=== PATIENT | female | born 1990 | race African-American/Black ===

== ENCOUNTER 2021-06-05 09:45 | Inpatient (IN) | payer MEDICAID, OTHER ==
[~2021-06-05] VITALS: Ht 157.5 cm; Wt 58.8 kg
[2021-06-05] MEDS ORDERED: TOPUD PO (09:58)
[2021-06-05] MEDS ORDERED: GABA-532 PO (09:58)
[2021-06-05] MEDS ORDERED: PRED-276 PO (09:58)
[2021-06-05 10:46] LABS: BASOPHILS % 0.1 % (0.0-2.0); EOSINOPHILS % 0.3 % (0.0-5.0); HEMATOCRIT. 37.3 % (36.0-48.0); HEMOGLOBIN. 12.3 g/dL (12.0-16.0); LYMPHOCYTES % 13.2 % (20.0-50.0); MEAN CORPUSCULAR HEMOGLOBIN 23.6 pg (28.0-32.0); MEAN CORPUSCULAR VOLUME 71.6 fL (81.0-99.0); MEAN PLATELET VOLUME 8.3 fl (7.4-10.4); MONOCYTES % 4.7 % (2.0-8.0); NEUTROPHILS % 81.7 % (40.0-76.0); PLATELET 224 x1000/uL (130-400); RED CELL DISTRIBUTION WIDTH 13.9 % (11.6-14.6)
[2021-06-05 10:53] LABS: CHLORIDE 107 mEq/L (98-107); PROTHROMBIN TIME 10.9 sec (9.6-11.0)
[2021-06-05 12:24] LABS: PLATELET ESTIMATE NORMAL
[2021-06-05] MEDS ORDERED: IPRATROPIUM/ALBUTEROL 0.5-3(2.5)MG/3ML NEB HHN PRN (12:45)
[2021-06-05] MEDS ORDERED: KCL 20MEQ/100ML PREMIX 100 ML IV NR (13:15)
[2021-06-05] MEDS: GABAPENTIN 300MG CAPSULE PO SCH (19:28)
[2021-06-06] VITALS (70 sets, daily range): BP systolic 71–150; BP diastolic 10–92
[2021-06-06] MEDS: DEXAMETHASONE 4MG/ML 1ML VIAL IV SCH ×4 (00:20→17:42)
[2021-06-06] MEDS ORDERED: MORPHINE SULFATE 2 MG/ML CPJ (NOT FOR IM USE) IV PRN (01:15)
[2021-06-06 07:08] LABS: CLARITY URINE CLOUDY (CLEAR); COLOR URINE YELLOW (YELLOW); KETONES URINE TRACE (NEGATIVE); LEUKOCYTE ESTERASE URINE NEGATIVE (NEGATIVE); NITRITE URINE NEGATIVE (NEGATIVE); OCCULT BLOOD URINE NEGATIVE (NEGATIVE); PH URINE 7.5 (4.5-8.0); PROTEIN URINE NEGATIVE (NEGATIVE); SPECIFIC GRAVITY URINE 1.016 (1.005-1.030); UROBILINOGEN URINE 0.2 E.U./dL (0.2-1.0)
[2021-06-06 07:12] LABS: UCG SCREEN NEGATIVE
[2021-06-06] MEDS ORDERED: HYDROMORPHONE HCL/PF 2MG/ML (OR) ONE (07:41)
[2021-06-06] MEDS ORDERED: ROCURONIUM BROMIDE 10MG/ML VIAL 5ML IV ONE (07:41)
[2021-06-06] MEDS ORDERED: DEXAMETHASONE 4MG/ML 1ML VIAL ONE (07:41)
[2021-06-06] MEDS ORDERED: MORPHINE SULFATE 4 MG/ML CPJ (NOT FOR IM USE) IV PRN (07:45)
[2021-06-06 07:46] LABS: BASOPHILS % 0.1 % (0.0-2.0); HEMATOCRIT. 39.2 % (36.0-48.0); HEMOGLOBIN. 12.5 g/dL (12.0-16.0); LYMPHOCYTES % 12.7 % (20.0-50.0); MEAN PLATELET VOLUME 8.6 fl (7.4-10.4); MONOCYTES % 2.5 % (2.0-8.0); NEUTROPHILS % 84.7 % (40.0-76.0); PLATELET 218 x1000/uL (130-400); RED BLOOD CELL COUNT 5.45 mill/uL (4.2-5.4)
[2021-06-06 07:48] LABS: CHLORIDE 106 mEq/L (98-107)
[2021-06-06] MEDS ORDERED: LABETALOL HCL 5MG/ML VIAL 20ML IV ONE (08:09)
[2021-06-06] MEDS ORDERED: HYDRALAZINE 20MG/ML VIAL ONE (08:09)
[2021-06-06] MEDS ORDERED: ALBUMIN HUMAN 25GM/100ML (25%) IV ONE (08:17)
[2021-06-06] MEDS ORDERED: PREDNISONE 10MG TABLET PO SCH (09:00)
[2021-06-06] MEDS: GABAPENTIN 300MG CAPSULE PO SCH ×3 (09:00→17:42)
[2021-06-06] MEDS ORDERED: NEOSTIGMINE METHYLSULFATE 1MG/ML 10 ML VIAL ONE (09:30)
[2021-06-06] MEDS ORDERED: GLYCOPYRROLATE 0.2 MG/ML 2ML VIAL ONE (09:30)
[2021-06-06] MEDS: DEXT 5%/LACTATED RINGERS 1,000 ML IV SCH ×2 (09:59→17:40)
[2021-06-06] MEDS ORDERED: ONDANSETRON INJ IV PRN (10:30)
[2021-06-06] MEDS ORDERED: DIPHENHYDRAMINE INJ IV PRN (10:30)
[2021-06-06] MEDS ORDERED: NALOXONE INJ IV PRN (10:30)
[2021-06-06] MEDS ORDERED: THROMBIN (BOVINE) 5000 UNITS/VIAL TOP ONE (10:53)
[2021-06-06] MEDS ORDERED: LIDOCAINE HCL/EPINEPHRINE 1%-EPI 1:100,000 30 ML VIAL INFIL ONE (10:53)
[2021-06-06] MEDS ORDERED: GENTAMICIN SULF 40MG/ML 2ML VIAL ONE (10:53)
[2021-06-06] MEDS ORDERED: HYDROMORPHONE PCA 10MG/50ML IV PRN (11:00)
[2021-06-06] MEDS: MORPHINE SULFATE 2 MG/ML CPJ (NOT FOR IM USE) IV PRN ×2 (11:26→13:38)
[2021-06-06] MEDS: NICARDIPINE 100 MG in SODIUM CHLORIDE 0.9% 60 ML IV PRN ×2 (12:21→18:24)
[2021-06-06] MEDS ORDERED: CEFAZOLIN SODIUM 1000MG/VIAL IV SCH (14:00)
[2021-06-06] MEDS: CEFAZOLIN 1000MG PREMIX 50 ML IV SCH ×2 (14:35→21:47)
[2021-06-06] MEDS ORDERED: MORPHINE SULFATE 2 MG/ML CPJ (NOT FOR IM USE) IV SCH ×2 (14:45)
[2021-06-06] MEDS: HYDROMORPHONE HCL/PF 2MG/ML CPJ IV PRN ×2 (17:40→21:47)
[2021-06-07] VITALS (91 sets, daily range): BP systolic 98–166; BP diastolic 39–100
[2021-06-07] MEDS: DEXAMETHASONE 4MG/ML 1ML VIAL IV SCH ×4 (00:49→17:14)
[2021-06-07] MEDS: DEXT 5%/LACTATED RINGERS 1,000 ML IV SCH ×2 (00:49→13:01)
[2021-06-07] MEDS: NICARDIPINE 100 MG in SODIUM CHLORIDE 0.9% 60 ML IV PRN ×2 (02:23→11:32)
[2021-06-07] MEDS: HYDROMORPHONE HCL/PF 2MG/ML CPJ IV PRN ×5 (04:34→21:14)
[2021-06-07] MEDS: CEFAZOLIN 1000MG PREMIX 50 ML IV SCH ×2 (06:30→12:59)
[2021-06-07] MEDS: GABAPENTIN 300MG CAPSULE PO SCH ×3 (08:06→17:14)
[2021-06-07 11:35] LABS: BG BASE EXCESS -1.4 mmol/L (-2.0-2.0); BG CARBOXYHEMOGLOBIN 0.3 % (0.5-1.5); BG DEOXYHEMOGLOBIN 1.4 % (0.0-5.0); BG FRACTION INSPIRED OXYGEN 21; BG HCO3 ACT 20.8 mmol/L (22.0-26.0); BG METHEMOGLOBIN 0.2 % (0.0-1.5); BG OXYGEN SATURATION 98.6 % (92.0-98.5); BG OXYHEMOGLOBIN 98.1 % (94.0-97.0); BG PCO2 27.1 mmHg (35.0-45.0); BG PH 7.502 (7.350-7.450); BG PO2 128.3 mmHg (75.0-100.0); BG SAMPLE SITE RIGHT RADIAL; BG TOTAL HEMOGLOBIN 10.8 g/dL (12.0-18.0); BG TOTAL RESPIRATORY RATE 18 b/min; BG VENT MODE ROOM AIR
[2021-06-07] MEDS: OXYCODONE HCL/ACETAMINOPHEN 5/325MG TABLET PO PRN ×2 (12:59→19:36)
[2021-06-07] MEDS ORDERED: BISACODYL 5MG TABLET PO PRN (18:45)
[2021-06-07] MEDS ORDERED: NALOXONE HCL 0.4MG/ML VIAL IV PRN (18:45)
[2021-06-08] VITALS (81 sets, daily range): BP systolic 100–157; BP diastolic 47–100
[2021-06-08] MEDS: DEXT 5%/LACTATED RINGERS 1,000 ML IV SCH ×3 (00:07→20:17)
[2021-06-08] MEDS: OXYCODONE HCL/ACETAMINOPHEN 5/325MG TABLET PO PRN ×5 (01:50→17:58)
[2021-06-08] MEDS: NICARDIPINE 100 MG in SODIUM CHLORIDE 0.9% 60 ML IV PRN ×2 (02:09→10:16)
[2021-06-08] MEDS: HYDROMORPHONE HCL/PF 2MG/ML CPJ IV PRN ×2 (07:18→12:43)
[2021-06-08] MEDS: DOCUSATE SODIUM 100MG CAPSULE PO SCH ×2 (08:07→17:57)
[2021-06-08] MEDS: GABAPENTIN 300MG CAPSULE PO SCH ×3 (08:07→17:57)
[2021-06-08] MEDS: PANTOPRAZOLE SODIUM 40 MG/VIAL IV SCH (08:07)
[2021-06-08] MEDS ORDERED: METOPROLOL TARTRATE 25MG TABLET PO NR (12:15)
[2021-06-08] MEDS: METOPROLOL TARTRATE 25MG TABLET PO SCH (20:17)
[2021-06-08 20:53] LABS: HEMATOCRIT. 29.9 % (36.0-48.0); HEMOGLOBIN. 9.7 g/dL (12.0-16.0); MEAN CORPUSCULAR HEMOGLOBIN 23.2 pg (28.0-32.0); MEAN CORPUSCULAR VOLUME 71.8 fL (81.0-99.0); MEAN PLATELET VOLUME 8.3 fl (7.4-10.4); PLATELET 219 x1000/uL (130-400); RED BLOOD CELL COUNT 4.16 mill/uL (4.2-5.4); RED CELL DISTRIBUTION WIDTH 13.5 % (11.6-14.6)
[2021-06-08] MEDS: GUAIFENESIN-DM 200MG-20MG/10ML UDC PO PRN (20:58)
[2021-06-08] MEDS ORDERED: PROMETHAZINE/DEXTROMETHORPHAN 6.25-15MG/5ML BOTTLE 120ML PO PRN (21:00)
[2021-06-08 21:03] LABS: CHLORIDE 101 mEq/L (98-107)
[2021-06-08 23:08] LABS: PLATELET ESTIMATE NORMAL
[2021-06-09] VITALS (42 sets, daily range): BP systolic 107–164; BP diastolic 72–103
[2021-06-09] MEDS: GUAIFENESIN-DM 200MG-20MG/10ML UDC PO PRN ×3 (00:47→08:00)
[2021-06-09] MEDS: OXYCODONE HCL/ACETAMINOPHEN 5/325MG TABLET PO PRN ×3 (00:47→18:32)
[2021-06-09] MEDS: DEXT 5%/LACTATED RINGERS 1,000 ML IV SCH ×2 (05:03→16:25)
[2021-06-09] MEDS: PANTOPRAZOLE SODIUM 40 MG/VIAL IV SCH (08:00)
[2021-06-09] MEDS: GABAPENTIN 300MG CAPSULE PO SCH ×3 (08:01→16:25)
[2021-06-09] MEDS: DOCUSATE SODIUM 100MG CAPSULE PO SCH ×2 (08:01→16:25)
[2021-06-09] MEDS: METOPROLOL TARTRATE 25MG TABLET PO SCH ×2 (08:01→20:21)
[2021-06-09] MEDS: PIPERACILLIN/TAZOBACTAM 3.375 G in DEXTROSE 5% WATER 50 ML IV SCH ×2 (13:07→23:30)
[2021-06-09] MEDS: IPRATROPIUM/ALBUTEROL 0.5-3(2.5)MG/3ML NEB HHN SCH (20:27)
[2021-06-10] VITALS (22 sets, daily range): BP systolic 111–152; BP diastolic 34–134
[2021-06-10] MEDS: IPRATROPIUM/ALBUTEROL 0.5-3(2.5)MG/3ML NEB HHN SCH ×4 (02:37→20:49)
[2021-06-10] MEDS: OXYCODONE HCL/ACETAMINOPHEN 5/325MG TABLET PO PRN ×2 (04:14→16:10)
[2021-06-10 05:27] LABS: BASOPHILS % 0.1 % (0.0-2.0); EOSINOPHILS % 0.1 % (0.0-5.0); HEMATOCRIT. 29.5 % (36.0-48.0); HEMOGLOBIN. 9.5 g/dL (12.0-16.0); LYMPHOCYTES % 11.6 % (20.0-50.0); MEAN CORPUSCULAR VOLUME 71.5 fL (81.0-99.0); MEAN PLATELET VOLUME 8.6 fl (7.4-10.4); MONOCYTES % 2.5 % (2.0-8.0); NEUTROPHILS % 85.7 % (40.0-76.0); PLATELET 188 x1000/uL (130-400); RED BLOOD CELL COUNT 4.13 mill/uL (4.2-5.4); RED CELL DISTRIBUTION WIDTH 13.5 % (11.6-14.6)
[2021-06-10 05:38] LABS: CHLORIDE 104 mEq/L (98-107)
[2021-06-10] MEDS: PIPERACILLIN/TAZOBACTAM 3.375 G in DEXTROSE 5% WATER 50 ML IV SCH ×3 (05:41→21:18)
[2021-06-10] MEDS: PANTOPRAZOLE SODIUM 40 MG/VIAL IV SCH (08:33)
[2021-06-10] MEDS: GABAPENTIN 300MG CAPSULE PO SCH ×3 (08:33→16:07)
[2021-06-10] MEDS: PREDNISONE 5MG TABLET PO SCH (08:34)
[2021-06-10] MEDS: DOCUSATE SODIUM 100MG CAPSULE PO SCH ×2 (08:34→16:07)
[2021-06-10] MEDS: PREDNISONE 20MG TABLET PO SCH (08:34)
[2021-06-10] MEDS: METOPROLOL TARTRATE 25MG TABLET PO SCH ×2 (08:34→21:15)
[2021-06-10] MEDS ORDERED: POTASSIUM CHLORIDE 20MEQ TABLET SR PO SCH ×2 (09:45→12:45)
[2021-06-10] MEDS: DEXT 5%/LACTATED RINGERS 1,000 ML IV SCH ×2 (10:42→19:27)
[2021-06-10] MEDS: HYDROMORPHONE HCL/PF 2MG/ML CPJ IV PRN (21:14)
[2021-06-11] VITALS: BP 150/100
[2021-06-11] MEDS: IPRATROPIUM/ALBUTEROL 0.5-3(2.5)MG/3ML NEB HHN SCH ×4 (00:42→20:25)
[2021-06-11] MEDS: OXYCODONE HCL/ACETAMINOPHEN 5/325MG TABLET PO PRN ×2 (01:50→18:50)
[2021-06-11 04:00] VITALS: BP 122/74
[2021-06-11] MEDS: PIPERACILLIN/TAZOBACTAM 3.375 G in DEXTROSE 5% WATER 50 ML IV SCH ×3 (05:36→21:08)
[2021-06-11 07:33] LABS: BASOPHILS % 0.1 % (0.0-2.0); EOSINOPHILS % 0.4 % (0.0-5.0); HEMOGLOBIN. 8.8 g/dL (12.0-16.0); LYMPHOCYTES % 15.3 % (20.0-50.0); MEAN CORPUSCULAR HEMOGLOBIN 23.5 pg (28.0-32.0); MEAN CORPUSCULAR VOLUME 72.2 fL (81.0-99.0); MEAN PLATELET VOLUME 8.8 fl (7.4-10.4); MONOCYTES % 2.3 % (2.0-8.0); NEUTROPHILS % 81.9 % (40.0-76.0); PLATELET 203 x1000/uL (130-400); RED BLOOD CELL COUNT 3.74 mill/uL (4.2-5.4); RED CELL DISTRIBUTION WIDTH 13.6 % (11.6-14.6)
[2021-06-11 07:49] LABS: CHLORIDE 107 mEq/L (98-107)
[2021-06-11 08:00] VITALS: BP 143/85
[2021-06-11] MEDS: GABAPENTIN 300MG CAPSULE PO SCH ×3 (08:36→17:41)
[2021-06-11] MEDS: PREDNISONE 20MG TABLET PO SCH (08:36)
[2021-06-11] MEDS: DOCUSATE SODIUM 100MG CAPSULE PO SCH ×2 (08:36→17:41)
[2021-06-11] MEDS: PANTOPRAZOLE SODIUM 40 MG/VIAL IV SCH (08:36)
[2021-06-11] MEDS: PREDNISONE 5MG TABLET PO SCH (08:36)
[2021-06-11] MEDS: METOPROLOL TARTRATE 25MG TABLET PO SCH ×2 (08:36→21:09)
[2021-06-11 12:00] VITALS: BP 152/84
[2021-06-11] MEDS: GUAIFENESIN-DM 200MG-20MG/10ML UDC PO PRN ×2 (12:03→21:08)
[2021-06-11 16:00] VITALS: BP 142/82
[2021-06-11] MEDS ORDERED: LACTULOSE 20G/30ML UDC PO SCH (17:24)
[2021-06-11] MEDS ORDERED: BISACODYL 10MG SUPP PR NR (17:30)
[2021-06-11 20:00] VITALS: BP 140/101
[2021-06-12] VITALS: BP 135/82
[2021-06-12] MEDS: IPRATROPIUM/ALBUTEROL 0.5-3(2.5)MG/3ML NEB HHN SCH ×4 (00:57→21:05)
[2021-06-12] MEDS: DEXT 5%/LACTATED RINGERS 1,000 ML IV SCH (03:31)
[2021-06-12 04:00] VITALS: BP 126/57
[2021-06-12] MEDS: PIPERACILLIN/TAZOBACTAM 3.375 G in DEXTROSE 5% WATER 50 ML IV SCH ×3 (05:27→21:23)
[2021-06-12 08:11] VITALS: BP 144/58
[2021-06-12] MEDS: POLYETHYLENE GLYCOL 3350 (17GM) 1 DOSE PACK PO SCH (08:39)
[2021-06-12] MEDS: METOPROLOL TARTRATE 25MG TABLET PO SCH ×2 (08:39→21:22)
[2021-06-12] MEDS: PREDNISONE 5MG TABLET PO SCH (08:39)
[2021-06-12] MEDS: DOCUSATE SODIUM 100MG CAPSULE PO SCH ×2 (08:39→17:05)
[2021-06-12] MEDS: GABAPENTIN 300MG CAPSULE PO SCH ×3 (08:39→17:05)
[2021-06-12] MEDS: PREDNISONE 20MG TABLET PO SCH (08:39)
[2021-06-12] MEDS: OXYCODONE HCL/ACETAMINOPHEN 5/325MG TABLET PO PRN ×2 (08:39→21:23)
[2021-06-12] MEDS: PANTOPRAZOLE SODIUM 40 MG/VIAL IV SCH (08:43)
[2021-06-12] MEDS: GUAIFENESIN-DM 200MG-20MG/10ML UDC PO PRN ×2 (09:11→21:22)
[2021-06-12 09:14] LABS: BASOPHILS % 0.1 % (0.0-2.0); EOSINOPHILS % 1.8 % (0.0-5.0); LYMPHOCYTES % 25.4 % (20.0-50.0); MEAN CORPUSCULAR HEMOGLOBIN 23.7 pg (28.0-32.0); MEAN CORPUSCULAR VOLUME 71.4 fL (81.0-99.0); MEAN PLATELET VOLUME 8.2 fl (7.4-10.4); MONOCYTES % 6.5 % (2.0-8.0); NEUTROPHILS % 66.2 % (40.0-76.0); PLATELET 270 x1000/uL (130-400); RED BLOOD CELL COUNT 3.78 mill/uL (4.2-5.4); RED CELL DISTRIBUTION WIDTH 13.4 % (11.6-14.6)
[2021-06-12] MEDS ORDERED: BENZONATATE 100MG CAPSULE PO PRN (12:00)
[2021-06-12 12:14] VITALS: BP 144/80
[2021-06-12] MEDS ORDERED: HYDR-4001 MT (12:37)
[2021-06-12 15:51] VITALS: BP 142/82
[2021-06-12 20:00] VITALS: BP 138/78
[2021-06-12] MEDS ORDERED: HYDROMORPHONE HCL/PF 2MG/ML CPJ IV PRN (20:45)
[2021-06-13 00:05] VITALS: BP 136/74
[2021-06-13] MEDS: DEXT 5%/LACTATED RINGERS 1,000 ML IV SCH ×2 (00:50→19:31)
[2021-06-13] MEDS: IPRATROPIUM/ALBUTEROL 0.5-3(2.5)MG/3ML NEB HHN SCH ×4 (01:59→20:40)
[2021-06-13 04:30] VITALS: BP 119/63
[2021-06-13] MEDS: PIPERACILLIN/TAZOBACTAM 3.375 G in DEXTROSE 5% WATER 50 ML IV SCH ×3 (05:43→21:22)
[2021-06-13 08:00] VITALS: BP 132/76
[2021-06-13] MEDS: POLYETHYLENE GLYCOL 3350 (17GM) 1 DOSE PACK PO SCH (09:00)
[2021-06-13] MEDS: OXYCODONE HCL/ACETAMINOPHEN 5/325MG TABLET PO PRN ×2 (09:06→22:30)
[2021-06-13] MEDS: DOCUSATE SODIUM 100MG CAPSULE PO SCH ×2 (10:00→16:33)
[2021-06-13] MEDS: GABAPENTIN 300MG CAPSULE PO SCH ×3 (10:00→17:40)
[2021-06-13] MEDS: PREDNISONE 5MG TABLET PO SCH (10:00)
[2021-06-13] MEDS: PANTOPRAZOLE SODIUM 40 MG/VIAL IV SCH (10:00)
[2021-06-13] MEDS: PREDNISONE 20MG TABLET PO SCH (10:00)
[2021-06-13] MEDS: METOPROLOL TARTRATE 25MG TABLET PO SCH ×2 (10:01→21:21)
[2021-06-13] MEDS: GUAIFENESIN-DM 200MG-20MG/10ML UDC PO PRN ×2 (10:05→21:21)
[2021-06-13 12:00] VITALS: BP 122/74
[2021-06-13 16:00] VITALS: BP 158/78
[2021-06-13 20:00] VITALS: BP 138/83
[2021-06-14] VITALS: BP 130/81
[2021-06-14 04:00] VITALS: BP 120/72
[2021-06-14] MEDS: PIPERACILLIN/TAZOBACTAM 3.375 G in DEXTROSE 5% WATER 50 ML IV SCH (05:53)
[2021-06-14 08:00] VITALS: BP 127/64
[2021-06-14] MEDS: PREDNISONE 20MG TABLET PO SCH (08:42)
[2021-06-14] MEDS: METOPROLOL TARTRATE 25MG TABLET PO SCH (08:42)
[2021-06-14] MEDS: PREDNISONE 5MG TABLET PO SCH (08:42)
[2021-06-14] MEDS: DOCUSATE SODIUM 100MG CAPSULE PO SCH (08:43)
[2021-06-14] MEDS: GABAPENTIN 300MG CAPSULE PO SCH ×2 (08:43→13:58)
[2021-06-14] MEDS: OXYCODONE HCL/ACETAMINOPHEN 5/325MG TABLET PO PRN ×2 (08:43→18:18)
[2021-06-14] MEDS: POLYETHYLENE GLYCOL 3350 (17GM) 1 DOSE PACK PO SCH ×2 (08:55→09:04)
[2021-06-14] MEDS ORDERED: FAMOTIDINE 20MG TABLET PO SCH (09:00)
[2021-06-14] MEDS: IPRATROPIUM/ALBUTEROL 0.5-3(2.5)MG/3ML NEB HHN SCH (10:00)
[2021-06-14 12:00] VITALS: BP 141/88
[2021-06-14 16:00] VITALS: BP 139/84
[2021-06-14 18:27] VITALS: BP 139/84
[2021-06-14] MEDS ORDERED: LOPHC2 MT (18:27)
== END 2021-06-14 19:50 | disposition home health service (06) | DRG 321 ==
LOC: ER 09:45 → 6WST 11:43 → ENRESERV 23:08 → MICUNO 06-06 09:45 → 6WST 06-10 18:33
PROVIDERS: ADMIT Internal Medicine; ATTEND Internal Medicine
PROC: 0RG20K0 Fusion of 2 or more Cervical Vertebral Joints with Nonautologous Tissue Substitute, Anterior Approach, Anterior Column, Open Approach (ICD-10-PCS; principal; 2021-06-06)
PROC: 0RB30ZZ Excision of Cervical Vertebral Disc, Open Approach (ICD-10-PCS; 2021-06-06)
PROC: 00NW0ZZ Release Cervical Spinal Cord, Open Approach (ICD-10-PCS; 2021-06-06)
DX: M48.02 Spinal stenosis, cervical region (principal); J95.821 Acute postprocedural respiratory failure; G82.50 Quadriplegia, unspecified; M50.021 Cervical disc disorder at C4-C5 level with myelopathy; K31.1 Adult hypertrophic pyloric stenosis; J18.9 Pneumonia, unspecified organism; R65.10 Systemic inflammatory response syndrome (SIRS) of non-infectious origin without acute organ dysfunction; E86.0 Dehydration; S62.304A Unspecified fracture of fourth metacarpal bone, right hand, initial encounter for closed fracture; D64.9 Anemia, unspecified; E87.6 Hypokalemia; I10 Essential (primary) hypertension; G35 Multiple sclerosis; F17.210 Nicotine dependence, cigarettes, uncomplicated; R73.9 Hyperglycemia, unspecified; M50.121 Cervical disc disorder at C4-C5 level with radiculopathy; K59.00 Constipation, unspecified; Z20.822 Contact with and (suspected) exposure to COVID-19; R20.2 Paresthesia of skin; R00.0 Tachycardia, unspecified; G56.00 Carpal tunnel syndrome, unspecified upper limb; X58.XXXA Exposure to other specified factors, initial encounter; Z80.9 Family history of malignant neoplasm, unspecified; Y93.89 Activity, other specified; Y92.89 Other specified places as the place of occurrence of the external cause; Y99.8 Other external cause status; R10.13 Epigastric pain; J95.89 Other postprocedural complications and disorders of respiratory system, not elsewhere classified
CPT/HCPCS: 36415; 36600; 71045; 72040; 72141; 73120; 76000; 80048; 80053; 81003; 81025; 82375; 82805; 83880; 84145; 85025; 86850; 86900; 87426; 88304; 88311; 93005; 93970; 94640; 95925; 95926; 95928; 95929; 97116; 97162; 97166; 97530; 97535; 99285; C1713; C9113; J0360; J0690; J1100; J1170; J1580; J2270; J2405; J2543; J2710; J3480; J3490; J7050; J7060; J7121; J7512; L0172; P9047; C1762